=== PATIENT | male | born 1975 | race Caucasian/White ===

== ENCOUNTER 2019-03-20 02:12 | Emergency (ER) | payer OTHER ==
[2019-03-20] MEDS ORDERED: Ketorolac Tromethamine 60 MG/2 ML VIAL ONE (02:58)
== END 2019-03-20 03:14 | disposition home or self-care (01) ==
LOC: NAV ERS 02:12
DX: M43.6 Torticollis (principal); F17.210 Nicotine dependence, cigarettes, uncomplicated
CPT/HCPCS: J1885